=== PATIENT | male | born 1990 | race Caucasian/White ===

== ENCOUNTER 2019-11-01 07:26 | Emergency (ER) | payer BC ==
[~2019-11-01] VITALS: Ht 185.4 cm; Wt 94.8 kg
[2019-11-01 07:40] VITALS: Ht 185.4 cm; Wt 94.8 kg
[2019-11-01 08:43] VITALS: BP 118/77
== END 2019-11-01 08:43 | disposition home or self-care (01) ==
LOC: ED 07:26
DX: J02.9 Acute pharyngitis, unspecified (principal)
CPT/HCPCS: J1100; J1885